=== PATIENT | male | born 1995 | race Caucasian/White ===

== ENCOUNTER 2019-09-19 02:24 | Emergency (ER) | payer BC ==
[~2019-09-19] VITALS: Ht 193 cm; Wt 131.5 kg
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
--- NOTE | 2019-09-19 03:45 | NUR ---
PT AMBULATED TO [facility] W/O ASSIST ON STEADY GAIT
--- NOTE | 2019-09-19 03:45 | NUR ---
CERVICAL COLLAR DC BY . CERVICAL CT CAME BACK W/ NO FRACTURE NOTED
--- NOTE | 2019-09-19 04:25 | NUR ---
Patient discharged to home in stable condition. Written and verbal after care instructions given. Patient verbalizes understanding of instruction. Pt ambulatory with a steady gait
[2019-09-19 04:27] VITALS: BP 130/85
== END 2019-09-19 04:28 | disposition home or self-care (01) ==
LOC: ER 02:28
DX: S16.1XXA Strain of muscle, fascia and tendon at neck level, initial encounter (principal); S00.212A Abrasion of left eyelid and periocular area, initial encounter; S80.211A Abrasion, right knee, initial encounter; S09.8XXA Other specified injuries of head, initial encounter; V49.59XA Passenger injured in collision with other motor vehicles in traffic accident, initial encounter; Y93.89 Activity, other specified; Y92.488 Other paved roadways as the place of occurrence of the external cause; Y99.8 Other external cause status
CPT/HCPCS: 70450-TC; 71045-TC; 72125-TC; 72128-TC